=== PATIENT | female | born 1965 | race Caucasian/White ===

== ENCOUNTER → 2016-11-11 | Outpatient (CLI) | payer BC ==
[~2016-11-11] MED LIST: ATENOLOL100 MG PO; CODEINE/GUAIFE120 M2 PO; LYRICA100 MG PO; PREDNISONE20 M1 PO; RELION VEN0.09 MG/Ac IH
== END ==
LOC: RAD 10:08
DX: R23.3 Spontaneous ecchymoses (principal); M51.36 Other intervertebral disc degeneration, lumbar region

== ENCOUNTER → 2019-02-11 | Outpatient (CLI) | payer BC ==
[2018-02-11 17:32] VITALS: BP 126/91
[2019-02-11 09:43] LABS: BASO # 0.1 (0.02-0.10); EOS # 0.1 (0.04-0.40); EOS % 2.8 % (1.0-5.0); HEMATOCRIT 42.8 % (37.0-47.0); LYMPH# 1.2 (1.50-4.00); MEAN CELL VOLUME 110 fl (78-100); MEAN CORPUSCULAR HGB CONC 35 g/dL (33-37); MEAN PLATELET VOLUME 9.5 fl (7.4-10.4); MONO # 0.4 (0.20-0.80); NEU # 2.5 (1.40-6.50); PLATELET COUNT 205 K/mm3 (130-400); RED BLOOD COUNT 3.89 M/mm3 (4.10-5.30); RED CELL DISTRIBUTION WIDTH 12.8 % (11.5-14.5); WHITE BLOOD COUNT 4.2 K/mm3 (4.8-10.8)
[2019-02-11 09:50] LABS: ALBUMIN 4.6 g/dL (3.5-5.0); CALCIUM 9.9 mg/dL (8.4-10.2); POTASSIUM 4.3 mmol/L (3.6-5.0); TOTAL BILIRUBIN 0.4 mg/dL (0.2-1.3); TOTAL PROTEIN 7.8 g/dL (6.3-8.2)
[2019-02-11 09:51] LABS: MEAN CORPUSCULAR HEMOGLOBIN 39 pg (27-31)
== END ==
LOC: LAB 09:12
PROVIDERS: Physician Assistant
DX: M19.90 Unspecified osteoarthritis, unspecified site (principal); G25.81 Restless legs syndrome; Z72.0 Tobacco use; G89.29 Other chronic pain; Z83.3 Family history of diabetes mellitus; J44.9 Chronic obstructive pulmonary disease, unspecified; I11.0 Hypertensive heart disease with heart failure; I50.9 Heart failure, unspecified

== ENCOUNTER 2019-05-09 09:44 | Emergency (ER) | payer BC ==
[2019-05-09] MEDS ORDERED: NORCO 325 MG-51 TA1 PO (10:51)
[2019-05-09 11:38] VITALS: BP 144/91
== END 2019-05-09 10:59 | disposition home or self-care (01) ==
LOC: ED 09:44
DX: S46.912A Strain of unspecified muscle, fascia and tendon at shoulder and upper arm level, left arm, initial encounter (principal); I10 Essential (primary) hypertension; F31.9 Bipolar disorder, unspecified; F17.210 Nicotine dependence, cigarettes, uncomplicated; K21.9 Gastro-esophageal reflux disease without esophagitis; W01.0XXA Fall on same level from slipping, tripping and stumbling without subsequent striking against object, initial encounter; Y92.009 Unspecified place in unspecified non-institutional (private) residence as the place of occurrence of the external cause

== ENCOUNTER → 2019-08-21 | Outpatient (CLI) | payer BC ==
[~2019-08-21] MED LIST changes: +NORCO 325 MG-51 TA1 PO
[2019-08-21 10:20] LABS: EOS # 0.1 (0.04-0.40); EOS % 0.4 % (1.0-5.0); HEMATOCRIT 41.1 % (37.0-47.0); HEMOGLOBIN 14.8 g/dL (12.5-16.0); LYMPH# 1.6 (1.50-4.00); MEAN CELL VOLUME 114 fl (78-100); MEAN CORPUSCULAR HEMOGLOBIN 41 pg (27-31); MEAN CORPUSCULAR HGB CONC 36 g/dL (33-37); MONO # 0.9 (0.20-0.80); NEU # 8.7 (1.40-6.50); PLATELET COUNT 246 K/mm3 (130-400); RED BLOOD COUNT 3.61 M/mm3 (4.10-5.30); RED CELL DISTRIBUTION WIDTH 14.9 % (11.5-14.5); WHITE BLOOD COUNT 11.3 K/mm3 (4.8-10.8)
[2019-08-21 10:25] LABS: ALBUMIN 4.3 g/dL (3.5-5.0)
[2019-08-21 10:26] LABS: POTASSIUM 4.3 mmol/L (3.5-5.1)
[2019-08-21 10:27] LABS: CALCIUM 9.1 mg/dL (8.3-10.5)
[2019-08-21 10:28] LABS: TOTAL PROTEIN 7.5 g/dL (6.4-8.3)
[2019-08-21 10:30] LABS: TOTAL BILIRUBIN 0.6 mg/dL (0.2-1.2)
== END ==
LOC: LAB 10:03
PROVIDERS: Physician Assistant
DX: J44.1 Chronic obstructive pulmonary disease with (acute) exacerbation (principal)

== ENCOUNTER 2019-12-23 13:45 | Inpatient (IN) | payer BC ==
[~2019-12-23] VITALS: Ht 165.1 cm; Wt 69.4 kg
[2019-12-23 14:17] LABS: BASO # 0.1 (0.02-0.10); EOS # 0.2 (0.04-0.40); EOS % 3.3 % (1.0-5.0); HEMATOCRIT 46.2 % (37.0-47.0); HEMOGLOBIN 15.9 g/dL (12.5-16.0); LYMPH# 2.3 (1.50-4.00); MEAN CELL VOLUME 113 fl (78-100); MEAN CORPUSCULAR HGB CONC 34 g/dL (33-37); MEAN PLATELET VOLUME 9.4 fl (7.4-10.4); MONO # 0.4 (0.20-0.80); NEU # 2.4 (1.40-6.50); PLATELET COUNT 231 K/mm3 (130-400); RED BLOOD COUNT 4.08 M/mm3 (4.10-5.30); RED CELL DISTRIBUTION WIDTH 13.3 % (11.5-14.5); WHITE BLOOD COUNT 5.5 K/mm3 (4.8-10.8)
[2019-12-23 14:19] LABS: ALBUMIN 4.3 g/dL (3.5-5.0); POTASSIUM 3.9 mmol/L (3.5-5.1)
[2019-12-23 14:20] LABS: MEAN CORPUSCULAR HEMOGLOBIN 39 pg (27-31)
[2019-12-23 14:21] LABS: CALCIUM 8.5 mg/dL (8.3-10.5)
[2019-12-23 14:22] LABS: TOTAL PROTEIN 6.9 g/dL (6.4-8.3)
[2019-12-23 14:24] LABS: TOTAL BILIRUBIN 0.4 mg/dL (0.2-1.2)
[2019-12-23] MEDS ORDERED: NEURONTIN300 MG/CAP (15:09)
[2019-12-23] MEDS ORDERED: PROAIR HFA0.09 MG/AC (15:09)
[2019-12-23] MEDS ORDERED: ATENOLOL25 MG (15:09)
[2019-12-23] MEDS ORDERED: LISINOPRIL10 MG (15:10)
[2019-12-23] MEDS ORDERED: PRILOSEC 20MG20 MG (15:10)
[2019-12-23 15:23] LABS: URINE APPEARANCE HAZY; URINE BILIRUBIN NEGATIVE (NEGATIVE); URINE BLOOD NEGATIVE (NEGATIVE); URINE COLOR YELLOW; URINE GLUCOSE NEGATIVE (NEGATIVE); URINE KETONE NEGATIVE (NEGATIVE); URINE LEUKOCYTE ESTERASE TRACE (NEGATIVE); URINE NITRATE NEGATIVE (NEGATIVE); URINE PROTEIN(semi-quant) TRACE mg/dL (NEGATIVE); URINE UROBILINOGEN NORMAL (NORMAL)
[2019-12-23] MEDS ORDERED: LASIX40 M1 PO (15:25)
[2019-12-23] MEDS ORDERED: LISINOPRIL40 MG PO (15:26)
[2019-12-23] MEDS ORDERED: PROAIR HFA0.09 MG/AC IH (15:26)
[2019-12-23] MEDS ORDERED: TENORMIN100 MG PO (15:26)
[2019-12-23] MEDS ORDERED: GABAPENTIN TAB600 MG PO (15:26)
[2019-12-23 16:10] VITALS: BP 154/100
[2019-12-23 16:38] LABS: PROTHROMBIN TIME 9.6 SECONDS (9.0-12.0)
[2019-12-23 17:52] VITALS: BP 118/81
[2019-12-23 20:10] VITALS: BP 136/86
[2019-12-23 21:48] VITALS: BP 138/91
[2019-12-24] VITALS (13 sets, daily range): BP systolic 101–152; BP diastolic 56–97
[2019-12-24 06:15] LABS: BASO # 0.1 (0.02-0.10); EOS # 0.2 (0.04-0.40); EOS % 3.1 % (1.0-5.0); HEMATOCRIT 41.6 % (37.0-47.0); HEMOGLOBIN 13.9 g/dL (12.5-16.0); LYMPH# 1.1 (1.50-4.00); MEAN CELL VOLUME 116 fl (78-100); MEAN CORPUSCULAR HGB CONC 33 g/dL (33-37); MEAN PLATELET VOLUME 9.1 fl (7.4-10.4); MONO # 0.6 (0.20-0.80); NEU # 4.9 (1.40-6.50); PLATELET COUNT 184 K/mm3 (130-400); RED CELL DISTRIBUTION WIDTH 13.4 % (11.5-14.5); WHITE BLOOD COUNT 6.8 K/mm3 (4.8-10.8)
[2019-12-24 06:48] LABS: ALBUMIN 3.9 g/dL (3.5-5.0); POTASSIUM 3.7 mmol/L (3.5-5.1); SODIUM 139 mmol/L (136-145)
[2019-12-24 06:49] LABS: CALCIUM 7.7 mg/dL (8.3-10.5)
[2019-12-24 06:51] LABS: GLUCOSE 119 mg/dL (65-105); TOTAL PROTEIN 6.3 g/dL (6.4-8.3)
[2019-12-24 06:52] LABS: CARBON DIOXIDE 23 mmol/L (22-29); TOTAL BILIRUBIN 0.6 mg/dL (0.2-1.2)
[2019-12-24 06:53] LABS: MEAN CORPUSCULAR HEMOGLOBIN 39 pg (27-31)
[2019-12-24 06:56] LABS: AST-SGOT 98 U/L (5-34)
[2019-12-24 06:57] LABS: ALT/SGPT 79 U/L (0-55)
[2019-12-24 06:59] LABS: ALCOHOL IN-HOUSE < 10 mg/dL (<10)
[2019-12-24 11:27] LABS: MAGNESIUM 1.17 mg/dL (1.60-2.60)
[2019-12-25] VITALS (9 sets, daily range): BP systolic 79–115; BP diastolic 25–80
[2019-12-25 12:33] LABS: EOS # 0.2 (0.04-0.40); EOS % 3.2 % (1.0-5.0); HEMATOCRIT 40.2 % (37.0-47.0); HEMOGLOBIN 13.1 g/dL (12.5-16.0); MEAN CELL VOLUME 118 fl (78-100); MEAN CORPUSCULAR HGB CONC 33 g/dL (33-37); MEAN PLATELET VOLUME 9.6 fl (7.4-10.4); MONO # 0.4 (0.20-0.80); NEU # 3.7 (1.40-6.50); PLATELET COUNT 151 K/mm3 (130-400); RED BLOOD COUNT 3.41 M/mm3 (4.10-5.30); RED CELL DISTRIBUTION WIDTH 12.9 % (11.5-14.5)
[2019-12-25 12:34] LABS: LYMPH# 0.6 (1.50-4.00); MEAN CORPUSCULAR HEMOGLOBIN 38 pg (27-31)
[2019-12-25 12:44] LABS: POTASSIUM 4.1 mmol/L (3.5-5.1)
[2019-12-25 12:45] LABS: CALCIUM 8.3 mg/dL (8.3-10.5)
[2019-12-26 02:27] VITALS: BP 125/74
[2019-12-26 06:19] VITALS: BP 125/80
[2019-12-26 09:37] VITALS: BP 110/71
[2019-12-26] MEDS ORDERED: CIPRO 500MG TA500 MG PO (12:18)
[2019-12-26] MEDS ORDERED: FLAGYL500 M1 PO (12:19)
[2019-12-26] MEDS ORDERED: IPRATROPIUM BROM3 M1 IH (12:19)
[2019-12-26] MEDS ORDERED: NICOTINE21 MG/24 H TD (12:19)
[2019-12-26] MEDS ORDERED: ACETAMINOPHEN-H1 TA2 PO (12:20)
[2019-12-26] MEDS ORDERED: ZOFRAN ODT4 MG PO (12:20)
[2019-12-26] MEDS ORDERED: MULTIVIT PO (12:21)
[2019-12-26] MEDS ORDERED: SLOW-MAG 106 MG1 ECT PO (12:21)
[2019-12-26] MEDS ORDERED: FOLIC ACID1 MG PO (12:21)
== END 2019-12-26 14:05 | disposition home or self-care (01) | DRG 392 ==
LOC: ED 13:45 → MED/SURG 16:05 → ED 12-24 17:48 → MED/SURG 12-24 17:48
PROVIDERS: Nurse Practitioner Primary Care; Physician Assistant; ADMIT Nurse Practitioner Family
DX: K52.9 Noninfective gastroenteritis and colitis, unspecified (principal); N39.0 Urinary tract infection, site not specified; J44.1 Chronic obstructive pulmonary disease with (acute) exacerbation; F10.229 Alcohol dependence with intoxication, unspecified; Y90.8 Blood alcohol level of 240 mg/100 ml or more; F41.9 Anxiety disorder, unspecified; R09.02 Hypoxemia; F32.9 Major depressive disorder, single episode, unspecified; I50.9 Heart failure, unspecified; I11.0 Hypertensive heart disease with heart failure; F17.210 Nicotine dependence, cigarettes, uncomplicated; K21.9 Gastro-esophageal reflux disease without esophagitis; K22.2 Esophageal obstruction; Z88.6 Allergy status to analgesic agent; Z86.73 Personal history of transient ischemic attack (TIA), and cerebral infarction without residual deficits; Z88.0 Allergy status to penicillin
CPT/HCPCS: G0378; J0744; J2060; J2270; J2405; J2930; J3411; J3490; J7030; J7040; J7512; Q9967

== ENCOUNTER → 2020-05-20 | Outpatient (CLI) | payer BC ==
[~2020-05-20] MED LIST changes: +ACETAMINOPHEN-H1 TA2 PO; +ATENOLOL25 MG; +CIPRO 500MG TA500 MG PO; +FLAGYL500 M1 PO; +FOLIC ACID1 MG PO; +GABAPENTIN TAB600 MG PO; +IPRATROPIUM BROM3 M1 IH; +LASIX40 M1 PO; +LISINOPRIL10 MG; +LISINOPRIL40 MG PO; +MULTIVIT PO; +NEURONTIN300 MG/CAP; +NICOTINE21 MG/24 H TD; +PRILOSEC 20MG20 MG; +PROAIR HFA0.09 MG/AC; +PROAIR HFA0.09 MG/AC IH; +SLOW-MAG 106 MG1 ECT PO; +TENORMIN100 MG PO; +ZOFRAN ODT4 MG PO
[2020-05-20 14:27] LABS: BASO # 0.1 (0.02-0.10); EOS # 0.2 (0.04-0.40); HEMATOCRIT 36.7 % (37.0-47.0); HEMOGLOBIN 12.4 g/dL (12.5-16.0); LYMPH# 1.3 (1.50-4.00); MEAN CORPUSCULAR HGB CONC 34 g/dL (33-37); MONO # 0.4 (0.20-0.80); NEU # 3.4 (1.40-6.50); PLATELET COUNT 186 K/mm3 (130-400); RED BLOOD COUNT 3.03 M/mm3 (4.10-5.30); RED CELL DISTRIBUTION WIDTH 15.4 % (11.5-14.5); WHITE BLOOD COUNT 5.4 K/mm3 (4.8-10.8)
[2020-05-20 14:28] LABS: MEAN CELL VOLUME 121 fl (78-100); MEAN CORPUSCULAR HEMOGLOBIN 41 pg (27-31)
[2020-05-20 14:36] LABS: ALBUMIN 4.3 g/dL (3.5-5.0); POTASSIUM 3.8 mmol/L (3.5-5.1)
[2020-05-20 14:37] LABS: CALCIUM 8.4 mg/dL (8.3-10.5)
[2020-05-20 14:38] LABS: TOTAL PROTEIN 7.1 g/dL (6.4-8.3)
[2020-05-20 14:40] LABS: TOTAL BILIRUBIN 0.7 mg/dL (0.2-1.2)
== END ==
LOC: LAB 14:06
PROVIDERS: Physician Assistant
DX: Z00.00 Encounter for general adult medical examination without abnormal findings (principal); Z12.31 Encounter for screening mammogram for malignant neoplasm of breast; J30.89 Other allergic rhinitis; M19.90 Unspecified osteoarthritis, unspecified site; K21.9 Gastro-esophageal reflux disease without esophagitis; J44.9 Chronic obstructive pulmonary disease, unspecified; I11.0 Hypertensive heart disease with heart failure; I50.9 Heart failure, unspecified; K52.9 Noninfective gastroenteritis and colitis, unspecified; M54.9 Dorsalgia, unspecified